=== PATIENT | male | born 1950 | race Caucasian/White ===

== ENCOUNTER 2022-01-23 07:55 | Outpatient (CLI) | payer BC, SELFPAY ==
[2022-01-23 13:16] LABS: Cholesterol* 102 mg/dL (90-199)
[2022-01-23 13:17] LABS: Glucose* 99 mg/dL (60-115); HDL Cholesterol* 32 mg/dL (>=40); LDL Cholesterol Calculated 55 mg/dL (<100); Triglycerides* 73 mg/dL (40-149)
[2022-01-23 13:44] LABS: PSA Screen* 3.51 ng/mL (0.10-4.00)
[2022-01-29 12:42] LABS: Albumin* 3.8 g/dL (3.3-5.0); Chloride* 103 mmol/L (96-114); Sodium* 138 mmol/L (135-149)
[2022-01-29 12:43] LABS: Potassium* 4.7 mmol/L (3.6-5.1)
[2022-01-29 12:45] LABS: Alanine Aminotransferase* 20 U/L (4-50); Alkaline Phosphatase* 71 U/L (40-150); Aspartate Amino Transferase* 31 U/L (12-35); Bilirubin Total* 0.6 mg/dL (0.1-1.5); Blood Urea Nitrogen* 17 mg/dL (7-30); Carbon Dioxide* 27 mmol/L (20-32); Creatinine* 0.8 mg/dL (0.5-1.5); Estimated Glomerular Filt Rate 96 ml/min; Total Protein* 6.5 g/dL (6.0-8.3)
== END 2022-01-23 07:56 | disposition home or self-care (01) ==
PROVIDERS: PCP Family Medicine; Visit Provider Family Medicine
DX: Z00.00 Encounter for general adult medical examination without abnormal findings (principal); E78.5 Hyperlipidemia, unspecified; I10 Essential (primary) hypertension; F41.9 Anxiety disorder, unspecified; Z12.5 Encounter for screening for malignant neoplasm of prostate
CPT/HCPCS: 80053; 80061; 82947; 84153

== ENCOUNTER 2023-02-05 08:00 | Outpatient (CLI) | payer BC, SELFPAY | END 2023-02-05 08:01 | disposition home or self-care (01) | LOC: NFLDREF 02-11 07:53 | PROVIDERS: PCP Family Medicine; Referring Provider Family Medicine; Visit Provider Family Medicine | DX: Z00.00 Encounter for general adult medical examination without abnormal findings (principal); E78.5 Hyperlipidemia, unspecified; I10 Essential (primary) hypertension; N40.0 Benign prostatic hyperplasia without lower urinary tract symptoms; M79.676 Pain in unspecified toe(s) | CPT/HCPCS: 80053; 80061; 84153; 84550 ==

== ENCOUNTER 2024-02-26 08:15 | Outpatient (CLI) | payer BC, SELFPAY ==
--- OUTSIDE RECORDS SUMMARY | 2024-03-03 05:41 | XMS_ITS | Clinical Summary ---
Author Organization [facility] Address [place], [place] [address] Care Team Providers Care Environmental Journalist Name Role Phone Timo Stern MD Primary Care Provider [phone] Allergies Active Allergy Reactions Criticality Noted Date Comments Sulfa (Sulfonamide Antibiotics) Hives 08/2010 Medications Medication Sig Dispensed Refills Start Date End Date Status pravastatin (PRAVACHOL) 40 mg tablet Take 1 tablet by mouth at bedtime. 0 05/24/2011 Active hydrochlorothiazide (HCTZ) 25 mg tablet Take 0.5 tablets by mouth once daily. 0 05/24/2011 Active Active Problems Problem Noted Date Diagnosed Date Tinnitus, bilateral 07/29/2023 Sensorineural hearing loss, bilateral 07/29/2023 Social History Tobacco Use Types Packs/Day Years Used Date Smoking Tobacco: Never Alcohol Use Standard Drinks/Week Comments No 0 (1 standard drink = 0.6 oz pur e alcohol) Sex and Gender Information Value Date Recorded Sex Assigned at Not on file Gender Identity Not on file Sexual Orientation Not on file Obstetrics History Last Filed Vital Signs Vital Sign Reading Time Taken Comments Blood Pressure 132/78 05/24/2011 11:53 AM OUTSOLE FLEXER Pulse 77 05/24/2011 11:53 AM OUTSOLE FLEXER Temperature - - Respiratory Rate - - Oxygen Saturation - - Inhaled Oxygen Concentration - - Weight 90.2 kg (198 lb 12.8 oz) 011 11:53 AM OUTSOLE FLEXER Height - - Body Mass Index - - Plan of Treatment Health Maintenance Due Date Last Done Comments Tdap 1963 Depression screening for age 12+ 1964 BMI (ht and wt on same day) for age 18+ 1970 Hepatitis C screening for ag e 18-79 1970 Tetanus booster 1972 Colonoscopy through age 75 1997 Lipids for age 45-75 1997 Zoster (shingles) series for age 50+ (1 of 2) 2002 Pneumococcal series for age 65+ (1 of 1 - PCV) 2017 COVID-19 vaccine series ( season) 2024 05/11/2023, 04/17/2022, 01/07/2022, Additional history exists Influenza for age 65+ 02/21/2024 Care Teams Environmental Journalist Relationship Specialty Start Date End Date Timo Stern MD [address] [place] [id number] PCP - General Family Practice 07/02/23
== END 2024-02-26 08:16 | disposition home or self-care (01) ==
LOC: NFLDREF 03-03 05:40
PROVIDERS: PCP Family Medicine; Referring Provider Family Medicine; Visit Provider Family Medicine
DX: E78.5 Hyperlipidemia, unspecified (principal); I10 Essential (primary) hypertension; Z12.5 Encounter for screening for malignant neoplasm of prostate
CPT/HCPCS: 80053; 80061; G0103

== ENCOUNTER 2024-03-28 07:58 | Outpatient (CLI) | payer BC, SELFPAY ==
--- OUTSIDE RECORDS SUMMARY | 2024-03-28 08:01 | XMS_ITS | Clinical Summary ---
Author Organization [facility] Address [place], [place] [address] Care Team Providers Care Business Support Specialist Name Role Phone Timo Stern MD Primary Care Provider [phone] Allergies Active Allergy Reactions Criticality Noted Date [...] Comments Blood Pressure 132/78 05/24/2011 11:53 AM EDUCATIONAL PROGRAMMING DIRECTOR Pulse 77 05/24/2011 11:53 AM EDUCATIONAL PROGRAMMING DIRECTOR Temperature - - Respiratory Rate - - Oxygen Saturation - - Inhaled Oxygen Concentration - - Weight 90.2 kg (198 lb 12.8 oz) 011 11:53 AM EDUCATIONAL PROGRAMMING DIRECTOR Height - - Body Mass Index - [...] 1 - PCV) 2017 COVID-19 vaccine series (2023- season) 2024 05/11/2023, 04/17/2022, 01/07/2022, Additional history exists Influenza for age 65+ 02/21/2024 Care Teams Business Support Specialist Relationship Specialty Start Date End Date Timo Stern MD [address] [place] [id number] PCP - General Family Practice 07/02/23
--- NOTE | 2024-03-28 09:08 | P.ANES_ITS ---
Anesthesia Charges Start Date/Time Anesthesia Start Date: 03/28/24 Anesthesia Start Time: 08:32 Stop Date/Time Anesthesia Stop Date: 03/28/24 Anesthesia Stop Time: 09:05 Summary Extremes of Age - Over 70 or under 1: POLITICAL REPORTER
--- NOTE | 2024-03-28 10:07 | W.ANESCHARGE ---
Anesthesia Charges Start Date/Time Anesthesia Start Date: 03/28/24 Anesthesia Start Time: 08:32 Stop Date/Time Anesthesia Stop Date: 03/28/24 Anesthesia Stop Time: 09:05 Summary Extremes of Age - Over 70 or under 1: MDA
== END 2024-03-28 07:59 | disposition home or self-care (01) ==
LOC: OP CLINIC 07:58
PROVIDERS: PCP Family Medicine; Visit Provider Surgery
DX: Z12.11 Encounter for screening for malignant neoplasm of colon (principal); Z86.0100 Personal history of colon polyps, unspecified
CPT/HCPCS: 00811; 45385; 88305; 99100; J2704

== ENCOUNTER 2024-10-19 09:46 | Outpatient (CLI) | payer BC, SELFPAY ==
--- NOTE | 2024-10-19 10:15 | CRLHL7_ITS ---
For Patients: As a result of the 21st Century Cures Act, medical imaging exams and procedure reports are released immediately into your electronic medical record. You may view this report before your referring provider. If you have questions, please contact your health care provider. EXAM: MRI OF THE LEFT SHOULDER, WITHOUT CONTRAST CLINICAL INDICATION: Shoulder pain. PRIOR SURGERY: None reported. COMPARISON PLAIN FILMS: None available at time of interpretation. COMPARISON CROSS-SECTIONAL IMAGING STUDIES: None available at time of interpretation. TECHNICAL: Axial, sagittal oblique and coronal oblique T1, PD, PD FS and T2-weighted images. FINDINGS: GLENOHUMERAL JOINT: Effusion/Cyst: Upper normal physiologic fluid. Some strandy synovitis subscapular and axillary recess. No paralabral or periarticular cyst or ganglion. Humeral Head Articular Cartilage: Mild heterogeneous T2 signal and grade 2 uniform thinning. Glenoid Articular Cartilage: Mild uniform grade 2 thinning. Loose Bodies: No appreciable loose bodies. Capsule: No convincing evidence of adhesive capsulitis or capsular injury. OSSEOUS STRUCTURES: No fracture, marrow edema or marrow replacement process. CORACOACROMIAL ARCH: Acromial Morphology: Type 1 acromial morphology. Minor lateral downsloping. No os acromiale. Tiny subacromial spur at the insertion of the coracoacromial ligament. Lateral acromial thickness is 6 mm. Acromiohumeral Interval: The acromiohumeral interval is adequately patent. At its narrowest, the interval measures 7 mm. No abnormal thickening of the coracoacromial ligament. Coracohumeral Interval: The coracohumeral interval is normal. At its narrowest, the coracohumeral interval measures 8 mm. Coracoid index is 15 mm. ACROMIOCLAVICULAR JOINT REGION: AC Joint: Moderate hypertrophic arthrosis with hypertrophy joint slightly indenting the supraspinatus musculotendinous junction. No joint space widening. Ligaments: The coracoclavicular ligaments are intact. BURSAE: Subacromial-Subdeltoid: Thin line of fluid in the bursa under the joint, acromion and proximal deltoid. No definite significant synovitis. Subcoracoid: No abnormal bursal edema, thickening or bursal fluid. ROTATOR CUFF TENDONS AND MUSCLES AND DELTOID: Supraspinatus: Heterogeneous intermediate signal tendinosis expands the distal tendon with intact foot plate. No significant tear. No atrophy or edema in the muscle. Infraspinatus: Similar appearance although slightly less pronounced tendinosis in the substance and articular margin of the infraspinatus without significant tear. Some fibrocystic foci in the greater tuberosity under the articular footplate. No muscle atrophy or edema. Teres Minor: No tendinosis, tendon tearing, muscle atrophy or muscle edema. Subscapularis: Tendinosis and shallow marginal tearing very slightly thins the subscapularis. No atrophy or edema in the muscle. Deltoid: No muscle atrophy or edema. BICEPS TENDON, LONG HEAD: The long head of the biceps tendon is appropriately positioned within the bicipital groove without tendon subluxation or dislocation. The biceps bj mechanism is intact. The biceps anchor appears grossly intact. There is no significant tendinosis or tendon tearing. GLENOID LABRUM: Within the limitations of non-arthrographic technique, the superior labrum and biceps-labral complex are intact. The anteroinferior labrum is intact without Bankart or Bankart-variant labral tear. The remainder of the labrum is similarly intact. OTHER FINDINGS: There is no abnormality within the suprascapular or spinoglenoid notches nor within the quadrilateral space. No axillary adenopathy or mass. IMPRESSION: 1. Moderate AC DJD. 2. Mild subacromial/subdeltoid bursitis. 3. Minimal glenohumeral osteoarthritis. Small reactive effusion with minor synovitis. 4. Moderate tendinosis supraspinatus and subscapularis and more mild in the infraspinatus. No high-grade partial or full-thickness tear. Dictated by Fernando Leo MD @ 10/20/2024 11:48:09 AM (Electronically Signed)
== END 2024-10-19 09:47 | disposition home or self-care (01) ==
LOC: MRI 09:49
PROVIDERS: PCP Family Medicine; Visit Provider Family Medicine
DX: M25.512 Pain in left shoulder (principal); M19.012 Primary osteoarthritis, left shoulder; M75.52 Bursitis of left shoulder; M75.82 Other shoulder lesions, left shoulder
CPT/HCPCS: 73221

== ENCOUNTER 2025-01-17 08:00 | Outpatient (RCR) | payer BC, SELFPAY ==
--- NOTE | 2024-11-30 09:18 | PT.OPEX ---
PT [place] Outpatient Eval PT [facility] Outpatient Eval Start: 11/30/24 07:40 Freq: Status: Active Protocol: Document 11/30/24 07:41 SUDHAHenrietta (Rec: 11/30/24 09:08 SUDHAHenrietta [id number]) E-signed By Katarina Salas, PT Physical Therapy Outpatient Evaluation Insurance Information Recert Due Date 02/24/25 Insurance Name [employer] Medical Diagnosis Partial tear left rotator cuff Treating Diagnosis Left shoulder pain, gross UE weakness, poor postural positioning Imaging Report 10/19/24: Information MRI- 1. Moderate AC DJD. 2. Mild subacromial/subdeltoid bursitis. 3. Minimal glenohumeral osteoarthritis. Small reactive effusion with minor synovitis. 4. Moderate tendinosis supraspinatus and subscapularis and more mild in the infraspinatus. No high-grade partial or full-thickness tear. Referring MD Anusha Bravo Darin presents to PT with primary complaint of left shoulder pain. Initial onset gradual over the years but exacerbated in April. Patient correlates this with getting 2 injections in that arm at the time. Pain is localized to the lateral aspect of the shoulder without radiating symptoms. He drives a truck for a living and has been doing other odd jobs at this time with reaching and lifting packages until he is able to drive a tractor (waiting on license plate). This also could be leading to his current condition. Upon consulting with Dr. Tavares he is a great candidate for conservative treatment. Goal is to minimize pain with reaching overhead and lifting for work and grandkids. He has not tried anything for this condition other than avoiding painful activities. 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 [employer] Objective Other/Pertinent Standing UE ROM (R/L): Objective -Abd: 138/112 painful -FF: 130/110 tight -Functional IR: T12/T12 however 5/10 pain to achieve position -Functional ER: C1/occiput 5/10 pain UE Strength (R/L): -ER0: R: 5/5, L: */5 -IR0: R: 5/5, L: 5/5 -FF: R: 5/5, L: 4-/5 -Abduction: R: 5/5, L: */5 -Mid Trap: R: 4/5, L: 4-/5 -Lower Trap: R: 4-/5, L: 4-/5 Scapular winging B L>R, rounded shoulders and slight forward head Impingement: -Phillips-Adan: + -Neers:+ Labral: -Modified Mireles?s: - Bicep Tendon: -Speeds: - Rotator Cuff: -Drop Arm Test: - -ER Lag: - -Belly Press: - -Subscap Lift Off: - Functional Test QuickDASH: 38.6/100 Performed & Score Assessment Assessment/ Patient is a 74 year old male presenting to physical Impression therapy for evaluation and treatment of left shoulder pain. Patient presents with limited shoulder ROM, painful arc, gross UE weakness consistent with MRI results of tendinosis of predominately supraspinatus RC tendon. These impairments are limiting the patients ability to lift moderate to heavy objects for work including packages and grandchildren, driving, reaching overhead into cupboard. Patient appears motivated to participate in PT and presents with good prognosis to improve mobility, strength, proprioception and return to functional activities with skilled physical therapy intervention. Primary Functional lift moderate to heavy objects for work including Limitations packages and grandchildren, driving, reaching overhead into cupboard Plan of Care Rehabilitation Good Potential Physical Therapy In 4 visits: Goals Patient demonstrates at least 140 degrees of pain free shoulder flexion for ability to reach overhead into a high shelf, dress, and bathe without limitation. Patient will be able to drive truck and perform all duties for work with <2/10 pain In 8 visits: Pt will exhibit 15-20 point improvement in QuickDASH Outcome measure to demonstrate functional improvement and progress towards goals. Pt will exhibit RC, GH, and periscapular strength no less than 4+/5 in order lift and carry >20lb including work packages and grandchildren Patient will be independent in self-management of shoulder and shoulder related symptoms Treatment Plan/ Dry Needling,Ice/Cold/Vasopneumatic,Joint Mobilization, Direct Interventions Manual Therapy,Neuromuscular Re-ed,Self-Care/Home Management,Therapeutic Activities,Therapeutic Exercises Frequency/Duration 1x/wk for 4 weeks with additional 2-4 sessions prn based on progress Patient Will Be Completion of LTG(s),Independent w/HEP,Independently Discharged From Progressing Therapy Evaluation Billing Untimed Code 28 Treatment Minutes Complexity Low Certification Information Initial 11/30/24 Certification Date Ending Certification 02/24/25 Date Provider Signature Yes Required Provider Signature POC & Medical Necessity Shows Agreement With Physician NPI Number Write NPI# Here Physician Comment/ : Change Physician Signature Please Sign/Date Here & Date Requested
== END 2025-01-17 08:54 | disposition home or self-care (01) ==
PROVIDERS: PCP Family Medicine; Visit Provider Orthopaedic Surgery Sports Medicine
DX: M75.112 Incomplete rotator cuff tear or rupture of left shoulder, not specified as traumatic (principal); Z51.89 Encounter for other specified aftercare
CPT/HCPCS: 97110; 97161

== ENCOUNTER 2025-04-13 07:35 | Outpatient (CLI) | payer BC, SELFPAY | END 2025-04-13 07:36 | disposition home or self-care (01) | LOC: NFLDREF 04-15 17:23 | PROVIDERS: PCP Family Medicine; Referring Provider Family Medicine; Visit Provider Family Medicine | DX: E78.5 Hyperlipidemia, unspecified (principal) | CPT/HCPCS: 80053; 80061; G0103 ==